=== PATIENT | female | born 1945 ===

== ENCOUNTER 2025-02-13 18:09 | Emergency (ER) | payer OTHER, SELFPAY ==
--- NOTE | 2025-02-13 18:20 | ED.GENMED ---
History of Present Illness
General
Chief Complaint: CODE
Time Seen by Provider: 02/13/25 18:19
History of Present Illness
History of Present Illness:
FOCUSED PAST MEDICAL HISTORY
- High blood pressure
REVIEW OF OLD RECORDS
- The patient had a cardiac catheterization in July 2019 and is noted to be status post coronary bypass
Note:
CHIEF COMPLAINT(S)
Cardiac arrest.
HISTORY OF PRESENT ILLNESS
The patient is a 79-year-old female who was reported to have collapsed around 5:30 AM. Witnesses, presumably family members, observed the collapse. Emergency medical services (EMS) arrived on the scene shortly after the event. Upon arrival, the
patient was found to be in cardiac arrest with an initial asystolic rhythm. EMS reported that cardiopulmonary resuscitation (CPR) was initiated by family members before their arrival, which was then continued by the EMS team. During transport, the
patient received five doses of epinephrine and one defibrillation shock. However, the patient remained in asystole throughout the transport to the hospital. Upon hospital arrival, advanced cardiac life support (ACLS) efforts continued, including the
administration of additional epinephrine and ongoing resuscitation attempts.
ADDITIONAL HISTORY OBTAINED FROM SOURCES OTHER THAN THE PATIENT
According to EMS, the patient was found in an asystolic state upon their arrival and remained so throughout transport. EMS confirmed that CPR was initiated by family members prior to their arrival, and they continued resuscitation efforts. An
initial defibrillation shock was given as they arrived at the medical facility, followed by five total doses of epinephrine administered during transport.
PHYSICAL EXAM
General: Unresponsive, in cardiac arrest.
Skin: Cool to touch.
Cardiovascular: No palpable pulses. Absent cardiac activity
Respiratory: Apnea, no spontaneous respiratory effort. Endotracheal tube in place orally. End-tidal CO2 in the 40s.
Abdomen: Distended and NG tube was placed by me
Neurological: Unresponsive to stimuli.
PROBLEM LIST
Acute:
- Cardiac arrest
- Asystole
- Ongoing cardiopulmonary resuscitation
PLAN
- Continue advanced cardiac life support (ACLS) measures.
- Consider additional doses of epinephrine as per ACLS protocol.
- Evaluate for potential reversible causes such as hypovolemia, hypoxia, acidosis, electrolyte imbalances, or drug overdose.
DIFFERENTIAL DIAGNOSIS
The Differential Diagnosis includes, in no particular order and is not limited to:
1. Acute myocardial infarction
2. Pulmonary embolism
3. Severe electrolyte imbalance
4. Drug overdose/toxicity
5. Hypothermia
6. Hypoglycemia
7. Cardiogenic shock
8. Severe infection or sepsis
9. Stroke
10. Respiratory failure leading to cardiac arrest
SUMMARY OF ENCOUNTER
The patient, a 79-year-old female, was brought to the emergency department in cardiac arrest, which lasted for about 45 minutes. Her family reported that she had recently visited her primary care physician for a cough and had also been experiencing
right upper quadrant pain. Approximately one hour prior to her collapse, she began feeling unwell and subsequently went into cardiac arrest. Emergency medical services administered five doses of epinephrine and delivered one defibrillation shock for
ventricular fibrillation; however, the patient reverted to pulseless electrical activity/asystole. During her stay in the emergency department, she remained asystolic with no neurological function and was completely unresponsive.
MANAGEMENT OF THE PATIENTS CARE WAS DISCUSSED WITH
I plan to contact the nurse practitioner, who is their primary managing doctor, as well as the medical insurance coding specialist.
MEDICAL DECISION MAKING
- Number and Complexity of Problems Addressed:
Chronic conditions affecting care: None mentioned.
Differential diagnosis: Acute myocardial infarction, Pulmonary embolism, Severe electrolyte imbalance, Drug overdose/toxicity, Hypothermia, Hypoglycemia, Cardiogenic shock, Severe infection or sepsis, Stroke, Respiratory failure leading to cardiac
arrest.
- Data:
Category 2
Clinical information was obtained from an independent historian: Input from family members regarding the patients condition prior to the event.
Category 3
Discussion of management with other providers is planned: Nurse practitioner and medical insurance coding specialist.
DIAGNOSIS
- Cardiac arrest (ICD-10: I46.9)
- Asystole (ICD-10: I46.0)
- Pulseless electrical activity (ICD-10: I46.1)
ULTRASOUND
I did perform a quick look bedside echo which showed no cardiac wall motion
I notified medical insurance coding specialist, Lico Wright who clears from a medical medical insurance coding specialist standpoint
As of 7 PM, there has been no callback from PMD: Jyoti Segovia NP
Phy Exam
Physical Exam
Physical Exam:
See HPI
Procedures
Other
Indication for procedure:: Cardiac arrest, chest compressions performed under my direct supervision
Procedure completed by: ED staff
Consent form signed: No
If no, reason: Emergency procedure
*Pulse Oximetry
Patient hypoxic: yes
*Critical Care Note
Total Time (30-74mins, 75-104mins- exclusive of procedures): Not Applicable
ED Attending Note
-
Portions of this chart may have been created with voice recognition software.� Occasional wrong word or��sound alike� substitutions may have occurred due to the inherent limitations of voice recognition software.
Discharge Plan
Departure
Patient Disposition:
Date of Disposition: 02/13/25
Time of Disposition: 18:19
Discharge Problem:
Cardiac arrest
Prescriptions:
No Action
torsemide 20 MG tablet
20 mg PO DAILY
metoprolol succinate 50 MG tablet extended release 24 hr
50 mg PO DAILY
isosorbide mononitrate 30 MG tablet extended release 24 hr
30 mg PO DAILY
clopidogrel 75 MG tablet
75 mg PO DAILY
pantoprazole 40 MG tablet,delayed release (DR/EC)
20 mg PO DAILY
telmisartan 40 MG tablet
40 mg PO DAILY
docusate sodium 100 MG capsule
100 mg PO DAILY
gabapentin 100 MG capsule
100 mg PO BID
rosuvastatin 10 MG tablet
10 mg PO HS
insulin glargine [Lantus Solostar U-100 Insulin] 300 UNITS/3 ML insulin pen
100 units SC BID
ferrous sulfate [Slow Fe] 142 MG tablet extended release
142 mg PO DAILY
cyanocobalamin (vitamin B-12) 1,000 MCG capsule
1,000 mcg PO DAILY
cholecalciferol (vitamin D3) 5,000 UNIT tablet,disintegrating
5,000 unit PO DAILY
vitamins A,C,S-phov-gdnapb [PreserVision AREDS] 1 CAP capsule
1 cap PO DAILY
metformin 500 MG tablet
500 mg PO BID Qty: 0 0RF
Rx Instructions:
HOLD post cath- OK to resume on 07/18 in AM
amlodipine 5 MG tablet
5 mg PO DAILY Qty: 90 3RF
doxycycline monohydrate 100 mg capsule
100 mg PO BID 7 Days Qty: 14 0RF
Discharge Date and Time
Print Language: AZERI
== END 2025-02-13 18:18 | disposition expired ==
LOC: EMR 18:09
PROVIDERS: EMERGENCY PHYSICIAN Emergency Medicine
DX: I46.9 Cardiac arrest, cause unspecified (principal); Z95.1 Presence of aortocoronary bypass graft
CPT/HCPCS: 92950; 99285